=== PATIENT | female | born 1950 | race Caucasian/White ===

== ENCOUNTER 2018-10-19 13:12 | Inpatient (IN) | payer OTHER ==
[2018-10-19] MEDS ORDERED: GABAPENTIN 300 MG CAP PO ONE (14:03)
[2018-10-19] MEDS ORDERED: ACETAMINOPHEN 500 MG TAB PO ONE (14:03)
[2018-10-19] MEDS ORDERED: ceFAZolin 2 GM/DEXTROSE 100 ML IV ONE (14:03)
[2018-10-19] MEDS ORDERED: LIDOCAINE 1% 2 ML INJ ID PRN (14:04)
[2018-10-19] MEDS ORDERED: LR 1,000 ML IV ONE (14:04)
[2018-10-19] MEDS ORDERED: ACETAMINOPHEN 500 MG TAB ONE (14:20)
[2018-10-19 14:35] LABS: PLATELET COUNT 376 10^3/uL (150-400)
--- NOTE | 2018-10-19 15:37 | PDHPUP ---
History & Physical Update H&P update statement: This history and physical update is based on an assessment of the patient which was completed after admission or registration (within 24 hours), but prior to the surgery/procedure. H&P update: H&P reviewed & patient examined, no change in patient's condition since H&P completed
[2018-10-19] MEDS ORDERED: CHLORHEXIDINE GLUC HIBICLENS 118 ML BTL TP ONE (15:48)
[2018-10-19] MEDS ORDERED: THROMBIN (BOVINE) 20,000 UNIT VIAL TP ONE (15:48)
[2018-10-19] MEDS ORDERED: BACITRACIN 50,000 UNITS/10 ML SYR IRR ONE (15:49)
[2018-10-19] MEDS ORDERED: BUPIVACAINE/EPI 0.25% 30 ML SDV ONE ×2 (15:49→22:43)
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
[2018-10-19] MEDS ORDERED: MIDAZOLAM 2 MG/2 ML VIAL IVP ONE (16:56)
[2018-10-19] MEDS ORDERED: REMIFENTANIL HCL 1 MG VIAL ONE ×2 (17:10→20:51)
[2018-10-19] MEDS ORDERED: PROPOFOL/EMULSION 500 MG/50 ML BOTTLE IV ONE ×2 (17:10→20:51)
[2018-10-19] MEDS ORDERED: fentaNYL 100 MCG/2 ML INJ ONE ×3 (17:10→23:29)
[2018-10-19] MEDS ORDERED: LIDOCAINE 2% 100 MG/5 ML SYR ONE (17:10)
[2018-10-19] MEDS ORDERED: PROPOFOL 200 MG/20 ML VIAL ONE (17:10)
[2018-10-19] MEDS ORDERED: ROCURONIUM 50 MG/5 ML VIAL ONE (17:10)
[2018-10-19] MEDS ORDERED: CITRATE DEXTROSE SOLN 500 ML BAG ONE (17:34)
[2018-10-19] MEDS ORDERED: ceFAZolin 1 GM VIAL ONE (21:04)
[2018-10-19] MEDS ORDERED: MIDAZOLAM 2 MG/2 ML VIAL ONE (22:09)
[2018-10-19] MEDS ORDERED: ALBUMIN 5% 250 ML BOTTLE IV ONE (22:41)
[2018-10-19] MEDS ORDERED: BACITRACIN ZINC 14.2 GM OINTTUBE TP ONE (22:59)
[2018-10-19] MEDS ORDERED: oxyCODONE IR 5 MG TAB PO PRN ×2 (23:15→23:19)
[2018-10-19] MEDS ORDERED: diphenhydrAMINE 25 MG CAP PO PRN (23:16)
[2018-10-19] MEDS ORDERED: morphINE PCA 30 MG/30 ML PCA IV PRN (23:16)
[2018-10-19] MEDS ORDERED: LACTULOSE 20 GM/30 ML UDCUP PO PRN (23:16)
[2018-10-19] MEDS ORDERED: MAGNESIUM HYDROXIDE 30 ML UDCUP PO PRN (23:16)
[2018-10-19] MEDS ORDERED: NALOXONE HCL 0.4 MG/ML INJ IVP PRN ×2 (23:16→23:19)
[2018-10-19] MEDS ORDERED: ONDANSETRON DISINTEGRATING 4 MG TAB PO PRN (23:16)
[2018-10-19] MEDS ORDERED: BISACODYL 10 MG SUPP PR PRN (23:16)
[2018-10-19] MEDS ORDERED: PROMETHAZINE HCL 25 MG/ML INJ IVP PRN (23:19)
[2018-10-19] MEDS ORDERED: ONDANSETRON 4 MG/2 ML VIAL IVP PRN (23:19)
[2018-10-19] MEDS ORDERED: HYDROCODONE/APAP 5/325 TAB PO PRN (23:19)
[2018-10-19] MEDS ORDERED: DIAZEPAM 5 MG/ML 1 ML SYR IVP PRN (23:19)
--- NOTE | 2018-10-19 23:24 | POSTANESTH ---
Post Anesthetic Evaluation Cardiovascular Status: Normal, Stable, Similar to Pre-Op Cond Respiratory Status: Normal, Stable, Similar to Pre-op Cond. Level of Consciousness/Mental Status: Can Participate in Eval, Alert and Oriented Pain Control: Adequate, Prn Tx Ordered Nausea/Vomiting Control: Adequate, Prn Tx Ordered Complications Possibly Related to Anesthesia: None Noted
[2018-10-19] MEDS ORDERED: NS 1,000 ML IV SCH (23:30)
[2018-10-19] MEDS: fentaNYL 100 MCG/2 ML INJ IVP PRN ×2 (23:31→23:47)
[2018-10-19] MEDS: HYDROmorphONE/DILAUDID 2 MG/ML INJ IVP PRN (23:55)
[2018-10-19] MEDS ORDERED: HYDROmorphONE/DILAUDID 2 MG/ML INJ ONE (23:56)
[2018-10-20] MEDS: HYDROmorphONE/DILAUDID 2 MG/ML INJ IVP PRN ×4 (00:05→00:43)
[2018-10-20] MEDS: GABAPENTIN 300 MG CAP PO SCH ×6 (01:12→20:36)
--- NOTE | 2018-10-20 01:12 | GOP ---
DATE OF OPERATION: 10/19/2018 SURGEON: Caden Yoon MD NEUROSURGEON: Caden Yoon MD. DRILL PRESS OPERATOR NUMERICAL CONTROL: ENOC Jean. ANESTHESIA: General endotracheal. 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 PROCEDURE PERFORMED: Removal of C3 through C5 anterior cervical plate with exploration of spinal fus ion. C2-3 complete anterior cervical diskectomy and redo C3-4 complete anterior cervical diskectomy and removal of PEEK allograft spacer with partial C3 vertebral corpectomy. Redo C3-4 foraminotomy. Placement of C2-3 and C3-4 structural PEEK interbody spacers. Placement of C2 through C5 anterior ce rvical plate with self-drilling screws. Use of intraoperative microscopy and fluoroscopy. FINDINGS: ESTIMATED BLOOD LOSS: 75 cc. INDICATIONS: The patient is a 68-year-old woman who recently underwent a C3-4 and C4-5 complete ante rior cervical diskectomy and arthrodesis with structural PEEK interbody spacers and anterior cervical plate and screws. The patient had soft bone at the time of surgery and postoperatively was watched very closely clinically and radiographically, and she had significant settling with increasing pain a nd presents now for redo anterior cervical diskectomy and fusion and removal and replacement of plati ng and extension up to C2-3 due to the significant settling and fracture of C3. In order to prevent further problems, the construct is being reinforced with a posterior cervical fusion with instrumenta tion and bone morphogenic protein. This was all discussed with the patient in great detail, includin g the risks versus benefits of such an approach. DESCRIPTION OF PROCEDURE: After informed consent was obtained, [facility] and placed in the supine position with the head in the Halter retractor system. The anterior cervical region was prepped and draped in sterile fashion after fluoroscopic localization of the kevin ect levels, the subcutaneous and intramuscular tissues were infiltrated with local anesthesia. The p rior horizontal skin incision was carefully incised and carried through the platysmal layer using mon opolar electrocautery. This was carried in the avascular plane between the sternocleidomastoid and c arotid sheath laterally and the strap muscles, trachea, and esophagus medially down to the prevertebr al fascia, which was carefully incised with Metzenbaum scissors. Note that there was an extensive am ount of scar tissue that was very meticulously dissected out. The anterior cervical plate was eventu ally carefully identified and removed in a standard fashion. The C2-3 interspace was also carefully exposed and the distraction pins inserted from C2 through C4. With distraction created across the in terspaces, the prior graft at C3-4 was explored, inspected, and noted to be a nonunion so far. This was removed. The C4-5 graft was also explored and inspected and appeared to be relatively solid. Th is was left in place. A complete C2-3 anterior cervical diskectomy was then performed. The posterio r longitudinal ligament was partially removed, and there was an extensive amount of epidural bleeding . I felt that it was in the patient's best interest to leave the remainder intact and prepare the en dplates. It was necessary to remove over 50% of the C3 vertebral body in order to get down to good b one for the fusion. I felt that it was best to leave the remaining bone in place and to put two sepa rate grafts, one at C2-3 and one at C3-4 instead of completely removing C3 and placing a corpectomy g raft across both interspaces and the vertebral body. Following placement of all the grafts along wit h demineralized bone matrix, an appropriately sized anterior cervical plate was then placed and secur ed from C2 to C5. There was not enough bone left at C3 to place screws, but good screw purchase was obtained at C2, C4, and C5 bilaterally. The locking mechanisms were engaged after verification of go od position of the screws using biplanar fluoroscopy. A drain was placed, and after copious irrigati on and meticulous hemostasis, the subcutaneous and intramuscular tissues were re-infiltrated with loc al anesthesia and the wound was closed in a layered fashion using interrupted Vicryl sutures, followe d by Steri-Strips on the skin. COMPLICATIONS: None. DISPOSITION: Patient was then repositioned prone for the posterior portion of the operation. /[id number]/MODL
--- NOTE | 2018-10-20 01:22 | GOP ---
DATE OF OPERATION: 10/19/2018 SURGEON: Caedn Yoon MD NEUROSURGEON: Caden Yoon MD. BRAND ACTIVATION MANAGER: ENOC Jean. ANESTHESIA: General endotracheal. 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 PROCEDURE PERFORMED: C2 through C5 posterior segmental (pedicle screw and lateral mass screw) fixation and posterolateral fusion with local autograft and bone morphogenic protein from C2-C5. Use of intraoperative microscopy, fluoroscopy, and computer volumetric stereotactic navigation with intraoperative neurophysiologic testing. FINDINGS: Extremely difficult exposure and surgery due to patient's anatomy ESTIMATED BLOOD LOSS: 100 cc. INDICATIONS: The patient is a 68-year-old woman who recently underwent a C3-4 and C4-5 complete anterior cervical diskectomy and arthrodesis with structural PEEK interbody spacers and anterior cervical plate and screws. The patient had soft bone at the time of surgery and postoperatively was watched very closely clinically and radiographically, and she had significant settling with increasing pain and presents now for redo anterior cervical diskectomy and fusion and removal and replacement of plating and extension up to C2-3 due to the significant settling and fracture of C3. In order to prevent further problems, the construct is being reinforced with a posterior cervical fusion with instrumentation and bone morphogenic protein. This was all discussed with the patient in great detail, including the risks versus benefits of such an approach. DESCRIPTION OF PROCEDURE: After the anterior portion of the procedure was completed, the patient was repositioned prone on a Stephen table with the head in the radiolucent [place] overhead crane inspector. The posterior cervical region was prepped and draped in a sterile fashion and after fluoroscopic localization, the correct levels of the subcutaneous and intramuscular tissues were infiltrated with local anesthesia. A midline linear incision was then created from approximately C2 to C5. This was carried down the fascial layer, which was incised using the monopolar electrocautery and carried in a subperiosteal plane along the spinous processes and lamina bilaterally. Note that due to the patients extremely short, wide neck, the exposure was extremely difficult and much more bloody than normal. Her anatomy was also very distorted. Intraoperative fluoroscopy was again utilized to verify the correct levels as best we could given the anatomy. Following this, the O-arm neuronavigational system was brought in and 3-D reconstructed images obtained and sent to the Stealth station. Using computer volumetric stereotactic navigation, pedicle screws were placed bilaterally at C2 followed by lateral mass screw fixation at C3, C4, and C5. Again, this was very technically challenging and took approximately 3X as much time as normal and all the screws could not even be placed. The rods were contoured and placed and secured after verification of good position of the screws using biplanar fluoroscopy (as best we could). After placing and securing the rods, the remaining laminae, facet joints, and lateral masses were extensively decorticated along with the joints from C2 to C5 , and after drilling these out and packing local autograft along with bone morphogenic protein in them, a drain was placed and the wound was closed in a layered fashion using interrupted Vicryl sutures, followed by Steri-Strips on the skin. COMPLICATIONS: None. DISPOSITION: The patient is currently in the process of being repositioned for extubation. /[id number]/MODL MTDD
[2018-10-20] MEDS ORDERED: ceFAZolin 2 GM/DEXTROSE 100 ML IV SCH (02:00)
[2018-10-20] MEDS ORDERED: SODIUM CL NASAL 45 ML BTL EACHNARE PRN (04:46)
[2018-10-20 05:43] LABS: PLATELET COUNT 280 10^3/uL (150-400)
[2018-10-20] MEDS: ceFAZolin 2 GM/DEXTROSE 100 ML IV SCH ×2 (05:55→13:15)
--- NOTE | 2018-10-20 07:44 | NEUSURGPN ---
Assessment/Plan: 68F s/p plate removal, C3 corepectomy, C2-5 plating and C2-5 PSF POD1 -Optimize pain management -PT/OT/SENIOR ACCOUNT REPRESENTATIVE, patient okay OOb to chair with soft collar. Nurse to call Buckle Coverer to refit collar as is too tight. Once hard collar arrives okay to get patient walking -Optimize pain management -Advance diet as tolerated -Continue JOSIE drain -Please notify NS with any change in neuro/motor exam Subjective: Posterior neck pain, feels like she has a "lump" in her throat Objective: NAD A&Ox3 MAEx4 5/5 and equal in BUE and BLE. JOSIE drain serosanguineous. Incisions c/d/i Catheter Insertion Date: 10/19/18 - Physician Discussed Patient with : Car Neurosurgery Physical Exam - Vitals, I&O, Labs I and O 10/19/18 10/20/18 10/21/18 05:59 05:59 05:59 Intake Total 3739 Output Total 1560 Balance 2179 Weight 105.687 kg Intake: Oral (ml) 400 IV Intake (ml) 3239 IV Infused (ml) 100 ceFAZolin 2 GM/DEXTROSE 100 100 ml @ 200 mls/hr IV ONCALL ONE Rx#:[id number] Output: Urine (ml) 900 Catheter 900 Estimated Blood Loss (ml) 500 JOSIE Drain Output (ml) 160 #1 Left Anterior Neck 50 Stephen Humphrey #2 Left Posterior Neck 110 Stephen Humphrey Other: Intake Quantity Yes Sufficient Vital Signs Temp Pulse Resp BP Pulse Ox 36.9 C 74 21 H 118/69 86 L 10/20/18 07:36 10/20/18 07:36 10/20/18 07:36 10/20/18 07:36 10/20/18 07:36 Laboratory Results 10/20/18 04:30 10/20/18 04:30 ICD10 Worksheet Patient Problems: Problems Problem Status Onset Fusion of spine of cervical region Acute
[2018-10-20] MEDS ORDERED: PNEUMOC 13-VAL CONJ-DIP CRM/PF 0.5 ML SYR (PREVNAR 13) IM ONE (07:50)
[2018-10-20] MEDS: POLYETHYLENE GLYCOL 3350 17 GM PKT PO SCH ×3 (08:09→21:48)
[2018-10-20] MEDS: FAMOTIDINE 20 MG TAB PO SCH ×2 (08:11→20:36)
[2018-10-20] MEDS: DULoxetine 60 MG CAP PO SCH (08:11)
[2018-10-20] MEDS: ATENOLOL 25 MG TAB PO SCH (08:11)
[2018-10-20] MEDS: SENNOSIDES/DOCUSATE SODIUM TAB PO SCH ×2 (08:12→20:35)
--- NOTE | 2018-10-20 09:23 | PDMN ---
Medical Necessity Medical [place] [facility] 2 days: OP: C2-C5 posterior segmental fixation and posterolateral fusion... [id number] APPROVED FOR INPT SURGERY 10/19
--- NOTE | 2018-10-20 10:01 | ASMTCMCOM ---
CM Note CM Note Notes: Pt is a 68 yo F had previously had spinal surgery on 07/02/18 and presented to her outpatient provider with pain and complications on 10/15/18. Pt underwent spinal surgery to replace infected hardware and is currently in ICU. Pt last discharged on 07/04/18 Independent with no services. Pt has daughter in the area who was involved in care previously. CM to follow Plan: TBD Date Signed: 10/20/2018 10:00 AM Electronically Signed By:SARAVANAN Lopez
[2018-10-20] MEDS: HYDROmorphONE/DILAUDID 1 MG/ML INJ IVP PRN ×2 (11:41→14:14)
--- NOTE | 2018-10-20 12:51 | PDGENHP ---
History and Physical - Chief Complaint Neck pain - History of Present Illness 68-year-old female who is admitted to the ICU after C3-4, C4-5 anterior cervical diskectomy as well as C2 through C5 fusion and C3 fracture with hardware failure and progressive pain. She progresses neck pain radiating to her arm not relieved with conservative measures. She has a history of rheumatoid arthritis on Dilshad septum followed at [facility]. 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 She denies new fevers chills nausea vomiting shortness of breath however cold intolerance, weight loss, syncope History Information - Allergies/Home Medication List Allergies/Adverse Reactions: Penicillins Allergy (Verified 10/16/18 15:10) Hives Sulfa (Sulfonamide Antibiotics) Allergy (Verified 10/16/18 15:10) Rash Home Medications: Atenolol [Tenormin 25 mg (*)] 25 mg PO DAILY 06/17/18 [Last Taken 10/19/18] Cyanocobalamin [Vitamin B12 1000MCG/ML (*)] 1,000 mcg IM Q30D 06/17/18 [Last Taken 10/05/18] DULoxetine [Cymbalta 60 MG (*)] 120 mg PO DAILY 06/17/18 [Last Taken 10/19/18] Ergocalciferol [Vitamin D2 (*)] 50,000 unit PO MO 06/17/18 [Last Taken 10/12/18] Gabapentin [Neurontin 300 MG (*)] 300 mg PO 5XD 06/17/18 [Last Taken 10/18/18] I have personally reviewed and updated: family history, medical history, social history, surgical history - Past Medical History Additional medical history: RA, obesity, prior spinal surgery, fibromyalgia, possible lupus - Surgical History Additional surgical history: Prior spine surgery - Family History Additional family history: No history of recurrent C-spine surgery - Social History Smoking Status: Never smoked Alcohol Use: None Review of Systems Review of Systems: ROS: 10pt was reviewed & negative except for what was stated in HPI & below Physical Exam Physical Exam: Temp Pulse Resp BP Pulse Ox 36.6 C 59 L 11 L 124/63 H 100 10/20/18 12:00 10/20/18 12:00 10/20/18 12:00 10/20/18 12:00 10/20/18 12:00 O2 (L/minute) 4 Constitutional: no apparent distress, appears nourished Eyes: PERRL Ears, Nose, Mouth, Throat: moist mucous membranes, ears appear normal, other ( Neck and collar) Cardiovascular: regular rate and rhythym, no murmur, rub, or gallop Respiratory: no respiratory distress, no rales or rhonchi Skin: warm, normal color Neurologic: AAOx3, sensation intact bilaterally, CN II-XII Intact Psychiatric: interacting appropriately, not anxious, not encephalopathic, thought process linear Lab Data & Imaging Review 10/20/18 04:30 10/20/18 04:30 WBC 10.21 10^3/uL (3.80-9.50) H 10/20/18 04:30 RBC 3.62 10^6/uL (4.18-5.33) L 10/20/18 04:30 Hgb 10.6 g/dL (12.6-16.3) L 10/20/18 04:30 Hct 33.3 % (38.0-47.0) L 10/20/18 04:30 MCV 92.0 fL (81.5-99.8) 10/20/18 04:30 MCH 29.3 pg (27.9-34.1) 10/20/18 04:30 MCHC 31.8 g/dL (32.4-36.7) L 10/20/18 04:30 RDW 13.2 % (11.5-15.2) 10/20/18 04:30 Plt Count 280 10^3/uL (150-400) 10/20/18 04:30 MPV 9.7 fL (8.7-11.7) 10/20/18 04:30 Neut % (Auto) 91.7 % (39.3-74.2) H 10/20/18 04:30 Lymph % (Auto) 4.5 % (15.0-45.0) L 10/20/18 04:30 [place] % (Auto) 3.2 % (4.5-13.0) L 10/20/18 04:30 Eos % (Auto) 0.0 % (0.6-7.6) L 10/20/18 04:30 Baso % (Auto) 0.2 % (0.3-1.7) L 10/20/18 04:30 Nucleat RBC Rel Count 0.0 % (0.0-0.2) 10/20/18 04:30 Absolute Neuts (auto) 9.36 10^3/uL (1.70-6.50) H 10/20/18 04:30 Absolute Lymphs (auto) 0.46 10^3/uL (1.00-3.00) L 10/20/18 04:30 Absolute Monos (auto) 0.33 10^3/uL (0.30-0.80) 10/20/18 04:30 Absolute Eos (auto) 0.00 10^3/uL (0.03-0.40) L 10/20/18 04:30 Absolute Basos (auto) 0.02 10^3/uL (0.02-0.10) 10/20/18 04:30 Absolute Nucleated RBC 0.00 10^3/uL (0-0.01) 10/20/18 04:30 Immature Gran % 0.4 % (0.0-1.1) 10/20/18 04:30 Immature Gran # 0.04 10^3/uL (0.00-0.10) 10/20/18 04:30 RBC/WBC/PLT Morphology TNP 10/20/18 04:30 Platelet Estimate TNP 10/20/18 04:30 Sodium 137 mEq/L (135-145) 10/20/18 04:30 Potassium 4.8 mEq/L (3.3-5.0) 10/20/18 04:30 Chloride 107 mEq/L (97-110) 10/20/18 04:30 Carbon Dioxide 24 mEq/l (22-31) 10/20/18 04:30 Anion Gap 6 mEq/L (6-14) 10/20/18 04:30 BUN 11 mg/dL (7-23) 10/20/18 04:30 Creatinine 0.6 mg/dL (0.6-1.0) 10/20/18 04:30 Estimated GFR > 60 10/20/18 04:30 Glucose 118 mg/dL (70-100) H 10/20/18 04:30 Calcium 8.8 mg/dL (8.5-10.4) 10/20/18 04:30 Patient ABO/Rh AB POSITIVE 10/19/18 14:03 Antibody Screen NEGATIVE 10/19/18 14:03 Assessment & Plan Assessment: 68-year-old female with rheumatoid arthritis and C3 fracture as well as hardware malfunction status post anterior discectomy and C2 through C5 spinal fusion. # C3 fracture # status post C-spine fusion # chronic pain # rheumatoid arthritis # obesity Plan: # aggressive pulmonary toilet # pain control # avoid immunosuppression for RA in the immediate postoperative phase # early ambulation as able per Neurosurgery # continue fibromyalgia medications # continue antihypertensives
[2018-10-20] MEDS: HYDROmorphONE/DILAUDID 2 MG TAB PO PRN ×3 (13:21→20:36)
[2018-10-20] MEDS: METHOCARBAMOL 750 MG TAB PO PRN ×2 (14:13→20:35)
[2018-10-20] MEDS: ACETAMINOPHEN 325 MG TAB PO PRN (23:41)
[2018-10-21] MEDS: HYDROmorphONE/DILAUDID 2 MG TAB PO PRN ×4 (00:32→19:49)
[2018-10-21] MEDS: GABAPENTIN 300 MG CAP PO SCH ×5 (06:14→22:32)
[2018-10-21] MEDS: METHOCARBAMOL 750 MG TAB PO PRN ×2 (07:52→14:08)
[2018-10-21] MEDS: ACETAMINOPHEN 325 MG TAB PO PRN ×2 (07:52→19:44)
--- NOTE | 2018-10-21 08:13 | SOAPPROG ---
SOAP Progress Note Assessment/Plan: Assessment: 68 yo F POD #2 plate removal, C2/3, C3/4 ACDF with C2-5 plating, C2- 5 posterior fusion Plan: neuro: stable x-rays pending hard collar at all times JOSIE x 2 please call with neuro changes discussed with Dr Monique 10/21/18 08:11 Subjective: + neck pain, continued pain right shoulder and arm. No weakness. Objective: Vital Signs Temp Pulse Resp BP Pulse Ox 36.7 C 75 14 108/55 L 99 10/21/18 07:43 10/21/18 07:43 10/21/18 07:43 10/21/18 07:43 10/21/18 07:43 Laboratory Results 10/20/18 04:30 10/20/18 04:30 10/20/18 10/21/18 10/22/18 05:59 05:59 05:59 Intake Total 3739 2210 Output Total 1560 3593 Balance 2179 -1383 AAOx4, +FC PERRL, EOMI, no facial droop 5/5 + light touch C/D/I x 2 ICD10 Worksheet Patient Problems: Problems Problem Status Onset Fusion of spine of cervical region Acute
[2018-10-21] MEDS: FAMOTIDINE 20 MG TAB PO SCH ×2 (09:22→20:04)
[2018-10-21] MEDS: SENNOSIDES/DOCUSATE SODIUM TAB PO SCH ×2 (09:23→20:04)
[2018-10-21] MEDS: ATENOLOL 25 MG TAB PO SCH (09:23)
[2018-10-21] MEDS: DULoxetine 60 MG CAP PO SCH (09:23)
[2018-10-21] MEDS: POLYETHYLENE GLYCOL 3350 17 GM PKT PO SCH ×3 (09:23→22:32)
[2018-10-21] MEDS: CEPACOL LOZENGE PO PRN ×2 (11:27→16:23)
--- NOTE | 2018-10-21 13:19 | PDINTPN ---
Data Sme Progress Note Assessment/Plan: 68-year-old female with RA and C3 fracture as well as hardware malfunction POD # 2 plate removal, C2/3, C3/4 ACDF with C2-5 plating, C2-5 posterior fusiona # C3 fracture # status post C-spine fusion # chronic pain # rheumatoid arthritis # obesity Plan: # avoid immunosuppression for RA in the immediate postoperative phase # aggressive pulmonary toilet # pain control # early ambulation as able per neurosurgery # continue fibromyalgia medications # continue antihypertensives # dispo per NS Subjective: Working with PT, no hypotension, still with neck pain and throat pain but improving. Drain output decreased. No fevers, chills, nausea, vomiting, SOB, leg swelling, chest pain Objective: Vital Signs Temp Pulse Resp BP Pulse Ox 36.7 C 64 18 112/71 92 10/21/18 12:00 10/21/18 12:00 10/21/18 12:00 10/21/18 12:00 10/21/18 12:00 Laboratory Results 10/20/18 04:30 10/20/18 04:30 10/20/18 10/21/18 10/22/18 05:59 05:59 05:59 Intake Total 3739 2210 150 Output Total 1560 3593 Balance 2179 -1383 150 ICD10 Worksheet Patient Problems: Problems Problem Status Onset Fusion of spine of cervical region Acute
[2018-10-22] MEDS: HYDROmorphONE/DILAUDID 2 MG TAB PO PRN ×4 (01:30→21:11)
[2018-10-22] MEDS: GABAPENTIN 300 MG CAP PO SCH ×5 (05:37→20:59)
[2018-10-22] MEDS ORDERED: DIAZEPAM 5 MG TAB PO PRN (07:22)
--- NOTE | 2018-10-22 07:25 | NEUSURGPN ---
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 Incisions c/d/i Catheter Insertion Date: 10/19/18 - Physician Discussed Patient with : Car Neurosurgery Physical Exam - Vitals, I&O, Labs I and O 10/21/18 10/22/18 10/23/18 05:59 05:59 05:59 Intake Total 2210 1100 Output Total 3593 Balance -1383 1100 Intake: Oral (ml) 350 1100 IV Infused (ml) 1860 Ns 1,000 ml @ 100 mls/hr 1660 IV CONT GABRIELA Rx#: [id number] ceFAZolin 2 GM/DEXTROSE 200 100 ml @ 200 mls/hr IV ONCALL ONE Rx#:[id number] Output: Urine (ml) 3400 Catheter 3400 JOSIE Drain Output (ml) 193 #1 Left Anterior Neck 46 Stephen Humphrey #2 Left Posterior Neck 147 Stephen Humphrey Other: Number of Voids Toilet 1 Vital Signs Temp Pulse Resp BP Pulse Ox 36.8 C 72 16 120/53 L 100 10/21/18 23:56 10/21/18 23:56 10/21/18 23:56 10/21/18 23:56 10/21/18 23:56 Laboratory Results 10/20/18 04:30 10/20/18 04:30 ICD10 Worksheet Patient Problems: Problems Problem Status Onset Fusion of spine of cervical region Acute
[2018-10-22] MEDS: SENNOSIDES/DOCUSATE SODIUM TAB PO SCH ×2 (08:29→21:00)
[2018-10-22] MEDS: POLYETHYLENE GLYCOL 3350 17 GM PKT PO SCH ×3 (08:29→21:00)
[2018-10-22] MEDS: ENOXAPARIN 40 MG/0.4 ML SYR SC SCH (08:29)
[2018-10-22] MEDS: ATENOLOL 25 MG TAB PO SCH (08:30)
[2018-10-22] MEDS: DULoxetine 60 MG CAP PO SCH (08:30)
[2018-10-22] MEDS: FAMOTIDINE 20 MG TAB PO SCH ×2 (08:30→21:00)
[2018-10-22] MEDS: ACETAMINOPHEN 325 MG TAB PO PRN ×2 (08:41→14:57)
--- NOTE | 2018-10-22 14:14 | ASMTCMCOM ---
CM Note CM Note Notes: PT rec HHC, pt amenable and was pre-arranged with [facility]. Indu with [facility] met with pt today. CM to follow. D/c plan of care: Home with family support and [facility] Date Signed: 10/22/2018 02:13 PM Electronically Signed By:JENY Grace
[2018-10-22] MEDS: METHOCARBAMOL 750 MG TAB PO PRN (14:59)
[2018-10-22] MEDS ORDERED: DEXAMETHASONE 4 MG/ML VIAL IVP ONE (22:00)
[2018-10-23] MEDS ORDERED: ALBUTEROL 3 ML DEYVIAL IH PRN (07:52)
[2018-10-23] MEDS: HYDROmorphONE/DILAUDID 1 MG/ML INJ IVP PRN ×5 (08:21→22:54)
[2018-10-23] MEDS: ATENOLOL 25 MG TAB PO SCH ×2 (08:25→14:02)
[2018-10-23] MEDS: GABAPENTIN 300 MG CAP PO SCH ×6 (08:25→22:43)
[2018-10-23] MEDS: FAMOTIDINE 20 MG TAB PO SCH ×3 (08:27→22:43)
[2018-10-23] MEDS: SENNOSIDES/DOCUSATE SODIUM TAB PO SCH ×4 (08:27→22:44)
[2018-10-23] MEDS: DULoxetine 60 MG CAP PO SCH (08:27)
[2018-10-23] MEDS: ENOXAPARIN 40 MG/0.4 ML SYR SC SCH (08:27)
[2018-10-23] MEDS: POLYETHYLENE GLYCOL 3350 17 GM PKT PO SCH ×3 (08:27→22:43)
--- NOTE | 2018-10-23 08:44 | SOAPPROG ---
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 Pt is currently NPO due to dysphagia Pain controlled. Objective: NAD A&Ox3 MAEx4 03/21 and equal in BUE and BLE. Incisions c/d/i Objective: Vital Signs Temp Pulse Resp BP Pulse Ox 36.6 C 63 17 104/60 89 L 10/23/18 08:00 10/23/18 08:25 10/23/18 08:00 10/23/18 08:25 10/23/18 08:00 Laboratory Results 10/20/18 04:30 10/20/18 04:30 10/22/18 10/23/18 10/24/18 05:59 05:59 05:59 Intake Total 1100 1000 Balance 1100 1000 Post op xrays 10/20/18 show good alignment ICD10 Worksheet Patient Problems: Problems Problem Status Onset Fusion of spine of cervical region Acute
[2018-10-23] MEDS: HYDROmorphONE/DILAUDID 2 MG TAB PO PRN (14:06)
[2018-10-23] MEDS: METHOCARBAMOL 750 MG TAB PO PRN (14:06)
[2018-10-23] MEDS: ACETAMINOPHEN 325 MG TAB PO PRN (14:15)
[2018-10-23] MEDS: ONDANSETRON 4 MG/2 ML VIAL IVP PRN (16:27)
[2018-10-24] MEDS: GABAPENTIN 300 MG CAP PO SCH ×4 (06:45→19:07)
[2018-10-24] MEDS: DULoxetine 60 MG CAP PO SCH (10:19)
[2018-10-24] MEDS: ATENOLOL 25 MG TAB PO SCH (10:19)
[2018-10-24] MEDS: FAMOTIDINE 20 MG TAB PO SCH ×2 (10:19→22:49)
[2018-10-24] MEDS: POLYETHYLENE GLYCOL 3350 17 GM PKT PO SCH ×3 (10:20→22:48)
[2018-10-24] MEDS: SENNOSIDES/DOCUSATE SODIUM TAB PO SCH ×2 (10:20→22:49)
--- NOTE | 2018-10-24 10:36 | SOAPPROG ---
SOAP Progress Note Assessment/Plan: A/P: 68F s/p plate removal, C3 corepectomy, C2-5 plating and C2-5 PSF POD#5 -ST eval this AM. pt failed swallow. 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 Monique and order dobhoff tube for nutrition -Optimize pain management -PT/OT/CRM TECHNICAL LEAD, continue hard cervical collar. OK to shower in Emily collar -Please notify NS with any change in neuro/motor exam -DVT prophx: TEds, SCDs, Lovenox -encourage OOB -D/W Dr. Monique Subjective: Has ongoing difficulty managing secretions Pt is currently NPO due to dysphagia Pain controlled. Objective: NAD A&Ox3 MAEx4 03/21 and equal in BUE and BLE. Incisions c/d/i 10/24/18 10:36 Objective: Vital Signs Temp Pulse Resp BP Pulse Ox 36.4 C 62 16 137/56 H 88 L 10/24/18 08:00 10/24/18 08:00 10/24/18 08:00 10/24/18 08:00 10/24/18 08:00 Laboratory Results 10/20/18 04:30 10/20/18 04:30 10/23/18 10/24/18 10/25/18 05:59 05:59 05:59 Intake Total 1000 0 Balance 1000 0 ICD10 Worksheet Patient Problems: Problems Problem Status Onset Fusion of spine of cervical region Acute
[2018-10-24] MEDS ORDERED: DEXAMETHASONE 4 MG/ML VIAL IVP ONE (10:45)
[2018-10-24] MEDS: HYDROmorphONE/DILAUDID 1 MG/ML INJ IVP PRN ×2 (11:42→16:51)
[2018-10-24] MEDS: ENOXAPARIN 40 MG/0.4 ML SYR SC SCH (12:52)
[2018-10-24] MEDS ORDERED: LORazepam 2 MG/ML INJ IVP ONE (13:00)
[2018-10-24] MEDS ORDERED: LIDOCAINE 2% JELLY 5 ML TUBE ONE (13:52)
[2018-10-24] MEDS ORDERED: IOPAMIDOL (ISOVUE-300) 150 ML BTL ONE (14:10)
[2018-10-24] MEDS: ONDANSETRON 4 MG/2 ML VIAL IVP PRN (14:38)
[2018-10-24] MEDS ORDERED: SENNOSIDES 17.6 MG/10 ML UDL - IF LIQUID ORDERED PO SCH (21:00)
[2018-10-24] MEDS: ACETAMINOPHEN 325 MG TAB PO PRN (21:12)
[2018-10-24] MEDS: METHOCARBAMOL 750 MG TAB PO PRN (21:13)
[2018-10-24] MEDS: GABAPENTIN 250 MG/5 ML 30 ML BOTTLE TUBE SCH (21:24)
[2018-10-24] MEDS: HYDROmorphONE/DILAUDID 2 MG TAB PO PRN (22:36)
[2018-10-24] MEDS: FAMOTIDINE 20 MG TAB TUBE SCH (22:47)
[2018-10-24] MEDS: SENNOSIDES 17.6 MG/10 ML UDL - IF LIQUID ORDERED TUBE SCH (22:48)
[2018-10-25] MEDS: HYDROmorphONE/DILAUDID 2 MG TAB PO PRN ×5 (04:47→22:48)
[2018-10-25] MEDS: GABAPENTIN 250 MG/5 ML 30 ML BOTTLE TUBE SCH ×5 (05:03→21:12)
[2018-10-25] MEDS: DULoxetine 60 MG CAP PO SCH (08:49)
[2018-10-25] MEDS: ATENOLOL 25 MG TAB PO SCH (08:49)
[2018-10-25] MEDS: FAMOTIDINE 20 MG TAB TUBE SCH ×2 (08:49→21:11)
[2018-10-25] MEDS: ENOXAPARIN 40 MG/0.4 ML SYR SC SCH (09:00)
[2018-10-25] MEDS: SENNOSIDES 17.6 MG/10 ML UDL - IF LIQUID ORDERED TUBE SCH ×2 (09:12→21:12)
[2018-10-25] MEDS: POLYETHYLENE GLYCOL 3350 17 GM PKT PO SCH ×3 (09:17→21:12)
--- NOTE | 2018-10-25 10:34 | SOAPPROG ---
SOAP Progress Note Assessment/Plan: A/P: 68F s/p plate removal, C3 corepectomy, C2-5 plating and C2-5 PSF POD#6 -Dobhoff in place. 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 OK to shower in Emily collar -Please notify NS with any change in neuro/motor exam -DVT prophx: TEds, SCDs, Lovenox -encourage OOB Subjective: in bed, comfortable. Dobhoff placed yesterday in IR. Doing better overall today. Right arm pain resolved. Objective: NAD A&Ox3 MAEx4 5/5 and equal in BUE and BLE. Incisions x 2 : c/d/i 10/24/18 10:36 10/25/18 10:33 Objective: Vital Signs Temp Pulse Resp BP Pulse Ox 36.6 C 62 14 132/67 H 96 10/25/18 07:23 10/25/18 07:23 10/25/18 07:23 10/25/18 07:23 10/25/18 07:23 Laboratory Results 10/20/18 04:30 10/20/18 04:30 10/24/18 10/25/18 10/26/18 05:59 05:59 05:59 Intake Total 0 925 Output Total 300 Balance 0 625 ICD10 Worksheet Patient Problems: Problems Problem Status Onset Fusion of spine of cervical region Acute
--- NOTE | 2018-10-25 12:10 | ASMTCMCOM ---
CM Note CM Note Notes: The discharge plan remains that patient will be followed by [facility] -PT. Date Signed: 10/25/2018 12:09 PM Electronically Signed By:Sonal Carty LCSW
[2018-10-25] MEDS ORDERED: guaiFENesin 200 MG/10 ML UDL TUBE PRN (12:31)
[2018-10-25] MEDS: ACETAMINOPHEN 650 MG/20.3 ML UDCUP PO PRN (22:48)
[2018-10-26] MEDS: HYDROmorphONE/DILAUDID 2 MG TAB PO PRN (04:32)
[2018-10-26] MEDS: ACETAMINOPHEN 650 MG/20.3 ML UDCUP PO PRN (04:33)
[2018-10-26] MEDS: GABAPENTIN 250 MG/5 ML 30 ML BOTTLE TUBE SCH ×5 (05:56→21:09)
[2018-10-26] MEDS: METHOCARBAMOL 750 MG TAB PO PRN (06:07)
[2018-10-26] MEDS ORDERED: DIAZEPAM 5 MG TAB TUBE PRN (08:25)
[2018-10-26] MEDS ORDERED: diphenhydrAMINE 12.5 MG/5 ML UDCUP PO PRN (08:26)
[2018-10-26] MEDS ORDERED: ACETAMINOPHEN 650 MG/20.3 ML UDCUP TUBE PRN (08:30)
[2018-10-26] MEDS ORDERED: MAGNESIUM HYDROXIDE 30 ML UDCUP TUBE PRN (08:30)
[2018-10-26] MEDS ORDERED: diphenhydrAMINE 12.5 MG/5 ML UDCUP TUBE PRN (08:30)
--- NOTE | 2018-10-26 08:48 | NEUSURGPN ---
Assessment/Plan: : 68F s/p plate removal, C3 corepectomy, C2-5 plating and C2-5 PSF POD#7 -Dobhoff in place. Continue tube feeds -Optimize pain management - pain well controlled currently -PT/OT/HELP DESK SUPPORT SPECIALIST, continue hard cervical collar. OK to shower in Emily collar -Please notify NS with any change in neuro/motor exam -DVT prophx: TEds, SCDs, Lovenox -encourage OOB -manager lan to work on dispo options. Subjective: Posterior neck pain, Denies any new arm pain. Objective: NAD A&Ox3 MAEx4 5/5 and equal in BUE and BLE. Incisions c/d/i Catheter Insertion Date: 10/19/18 - Physician Discussed Patient with : Car Neurosurgery Physical Exam - Vitals, I&O, Labs I and O 10/25/18 10/26/18 10/27/18 05:59 05:59 05:59 Intake Total 925 1400 3218 Output Total 300 Balance 625 1400 3218 Intake: Tube Feeding (ml) 801 527 6903 Tube Flush (ml) 521 611 0072 Output: Urine (ml) 300 Toilet 300 Other: Number of Voids Toilet 1 1 1 Vital Signs Temp Pulse Resp BP Pulse Ox 36.7 C 63 16 126/66 H 90 L 10/26/18 07:50 10/26/18 07:50 10/26/18 07:50 10/26/18 07:50 10/26/18 07:50 Laboratory Results 10/20/18 04:30 10/20/18 04:30 ICD10 Worksheet Patient Problems: Problems Problem Status Onset Fusion of spine of cervical region Acute
[2018-10-26] MEDS ORDERED: LACTULOSE 20 GM/30 ML UDCUP TUBE PRN (09:00)
[2018-10-26] MEDS ORDERED: METHOCARBAMOL 750 MG TAB TUBE PRN (09:00)
[2018-10-26] MEDS: ATENOLOL 25 MG TAB TUBE SCH (10:50)
[2018-10-26] MEDS: DULoxetine 60 MG CAP TUBE SCH (10:50)
[2018-10-26] MEDS: ENOXAPARIN 40 MG/0.4 ML SYR SC SCH (10:50)
[2018-10-26] MEDS: HYDROmorphONE/DILAUDID 2 MG TAB TUBE PRN ×2 (10:51→17:25)
[2018-10-26] MEDS: POLYETHYLENE GLYCOL 3350 17 GM PKT TUBE SCH ×3 (10:51→21:09)
[2018-10-26] MEDS: FAMOTIDINE 20 MG TAB TUBE SCH ×2 (10:51→21:08)
[2018-10-26] MEDS: SENNOSIDES 17.6 MG/10 ML UDL - IF LIQUID ORDERED TUBE SCH ×2 (10:51→21:09)
[2018-10-26] MEDS: NS 1,000 ML IV SCH (18:46)
[2018-10-26] MEDS: HYDROmorphONE/DILAUDID 1 MG/ML INJ IVP PRN ×2 (21:07→23:34)
[2018-10-27] MEDS ORDERED: ACETAMINOPHEN 650 MG SUPP PR PRN (01:15)
[2018-10-27] MEDS: NS 1,000 ML IV SCH ×2 (01:52→17:34)
[2018-10-27] MEDS: DIAZEPAM 5 MG/ML 1 ML SYR IVP PRN ×3 (01:53→20:49)
[2018-10-27] MEDS: GABAPENTIN 250 MG/5 ML 30 ML BOTTLE TUBE SCH ×4 (04:41→20:23)
[2018-10-27] MEDS: HYDROmorphONE/DILAUDID 1 MG/ML INJ IVP PRN ×5 (05:02→20:21)
--- NOTE | 2018-10-27 07:16 | SOAPPROG ---
SOAP Progress Note Assessment/Plan: A/P: 68F s/p plate removal, C3 corepectomy, C2-5 plating and C2-5 PSF POD#8 -Dobhoff pulled out, awaiting replacement today. 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 OK to shower in Emily collar -Please notify NS with any change in neuro/motor exam -DVT prophx: TEds, SCDs, Lovenox -encourage OOB Subjective: in bed, comfortable. No new issues but dobhoff did get pulled out yesterday Objective: NAD A&Ox3 MAEx4 / and equal in BUE and BLE. Incisions x 2 : c/d/i Objective: Vital Signs Temp Pulse Resp BP Pulse Ox 36.7 C 65 18 138/74 H 99 10/26/18 23:23 10/26/18 23:23 10/26/18 23:23 10/26/18 23:23 10/26/18 23:23 Laboratory Results 10/20/18 04:30 10/20/18 04:30 10/26/18 10/27/18 10/28/18 05:59 05:59 05:59 Intake Total 1400 4718 Balance 1400 4718 ICD10 Worksheet Patient Problems: Problems Problem Status Onset Fusion of spine of cervical region Acute
[2018-10-27] MEDS ORDERED: LIDOCAINE 2% JELLY 20 ML (UROJECT) ONE (08:54)
[2018-10-27] MEDS ORDERED: BENZOCAINE UNIT DOSE SPRAY HURRICAINE MM ONE (08:56)
[2018-10-27] MEDS ORDERED: IOPAMIDOL (ISOVUE-M 300) 15 ML VIAL ONE (09:35)
[2018-10-27] MEDS: SENNOSIDES 17.6 MG/10 ML UDL - IF LIQUID ORDERED TUBE SCH ×2 (11:42→20:24)
[2018-10-27] MEDS: DULoxetine 60 MG CAP TUBE SCH (11:42)
[2018-10-27] MEDS: FAMOTIDINE 20 MG TAB TUBE SCH ×2 (11:42→20:24)
[2018-10-27] MEDS: ATENOLOL 25 MG TAB TUBE SCH (11:42)
[2018-10-27] MEDS: POLYETHYLENE GLYCOL 3350 17 GM PKT TUBE SCH ×3 (11:42→20:24)
[2018-10-27] MEDS: ENOXAPARIN 40 MG/0.4 ML SYR SC SCH (11:42)
[2018-10-28] MEDS: HYDROmorphONE/DILAUDID 1 MG/ML INJ IVP PRN ×3 (00:19→08:12)
[2018-10-28] MEDS: NS 1,000 ML IV SCH ×2 (02:56→11:26)
[2018-10-28] MEDS: GABAPENTIN 250 MG/5 ML 30 ML BOTTLE TUBE SCH ×4 (04:49→18:20)
[2018-10-28] MEDS: DIAZEPAM 5 MG/ML 1 ML SYR IVP PRN (05:04)
--- NOTE | 2018-10-28 07:53 | SOAPPROG ---
SOAP Progress Note Assessment/Plan: Assessment: 68 yo F POD #9 plate removal, C2/3, C3/4 ACDF with C2-5 plating, C2- 5 posterior fusion Plan: neuro: stable continued dysphagia, dobhoff coughed out twice yesterday, discussed having speech re-evaluate patient on considering PEG placement hard collar at all times JPs removed PT/OT/ST scd/dino/lovenox for dvt prophylaxis please call with neuro changes discussed with Dr Monique 10/21/18 08:11 10/28/18 07:50 Subjective: neck pain improving, continued dysphagia, no arm pain, no weakness. Objective: Vital Signs Temp Pulse Resp BP Pulse Ox 36.5 C 65 17 160/90 H 89 L 10/28/18 07:40 10/28/18 07:40 10/28/18 07:40 10/28/18 07:40 10/28/18 07:40 Laboratory Results 10/20/18 04:30 10/20/18 04:30 10/27/18 10/28/18 10/29/18 05:59 05:59 05:59 Intake Total 4718 1500 Output Total 600 Balance 4718 900 AAOX4, +FC PERRL, EOMI, no facial droop 5/5 + light touch C/D/I x 2 ICD10 Worksheet Patient Problems: Problems Problem Status Onset Fusion of spine of cervical region Acute
[2018-10-28] MEDS: ATENOLOL 25 MG TAB TUBE SCH (08:17)
[2018-10-28] MEDS: ENOXAPARIN 40 MG/0.4 ML SYR SC SCH (08:17)
[2018-10-28] MEDS: DULoxetine 60 MG CAP TUBE SCH (08:17)
[2018-10-28] MEDS: SENNOSIDES 17.6 MG/10 ML UDL - IF LIQUID ORDERED TUBE SCH (08:18)
[2018-10-28] MEDS: POLYETHYLENE GLYCOL 3350 17 GM PKT TUBE SCH (08:18)
[2018-10-28] MEDS: FAMOTIDINE 20 MG TAB TUBE SCH (08:18)
[2018-10-28] MEDS: HYDROmorphONE/DILAUDID 2 MG TAB TUBE PRN (13:23)
[2018-10-28] MEDS ORDERED: ACETAMINOPHEN 325 MG TAB PO PRN (13:47)
[2018-10-28] MEDS ORDERED: diphenhydrAMINE 25 MG CAP PO PRN (13:53)
[2018-10-28] MEDS ORDERED: METHOCARBAMOL 750 MG TAB PO PRN (14:30)
[2018-10-28] MEDS ORDERED: MAGNESIUM HYDROXIDE 30 ML UDCUP PO PRN (14:30)
[2018-10-28] MEDS ORDERED: LACTULOSE 20 GM/30 ML UDCUP PO PRN (14:30)
[2018-10-28] MEDS ORDERED: guaiFENesin 200 MG/10 ML UDL PO PRN (14:30)
--- NOTE | 2018-10-28 14:41 | ASMTCMCOM ---
CM Note CM Note Notes: Pt has had several challenges with her dobhoff coming out, considering peg. PT/OT/FENCE SETTER continue to rec home health care. D/c plan remains home with [facility] PT/OT/FENCE SETTER. CM to follow. Date Signed: 10/28/2018 02:40 PM Electronically Signed By:JENY Grace
[2018-10-28] MEDS: ATENOLOL 25 MG TAB PO SCH (15:26)
[2018-10-28] MEDS: POLYETHYLENE GLYCOL 3350 17 GM PKT PO SCH ×2 (15:27→21:53)
[2018-10-28] MEDS: SENNOSIDES/DOCUSATE SODIUM TAB PO SCH ×2 (15:27→21:53)
[2018-10-28] MEDS: DULoxetine 60 MG CAP PO SCH (15:27)
[2018-10-28] MEDS: FAMOTIDINE 20 MG TAB PO SCH ×2 (15:27→20:46)
[2018-10-28] MEDS: GABAPENTIN 300 MG CAP PO SCH ×3 (15:27→23:18)
[2018-10-28] MEDS: HYDROmorphONE/DILAUDID 2 MG TAB PO PRN ×2 (18:21→23:19)
[2018-10-28] MEDS: DIAZEPAM 5 MG TAB PO PRN (20:53)
[2018-10-29] MEDS: HYDROmorphONE/DILAUDID 2 MG TAB PO PRN ×4 (03:40→23:23)
[2018-10-29] MEDS: GABAPENTIN 300 MG CAP PO SCH ×5 (06:22→21:03)
[2018-10-29] MEDS: DIAZEPAM 5 MG TAB PO PRN ×3 (06:25→21:03)
--- NOTE | 2018-10-29 07:28 | SOAPPROG ---
SOAP Progress Note Assessment/Plan: Assessment: 68 yo F POD #10 plate removal, C2/3, C3/4 ACDF with C2-5 plating, C2 -5 posterior fusion Plan: neuro: stable continued dysphagia, diet advance to puree yesterday, continue to follow for now hard collar at all times JPs removed PT/OT/ST scd/dino/lovenox for dvt prophylaxis please call with neuro changes dc merchandise planner to evaluate placement vs hhc discussed with Dr Monique 10/21/18 08:11 10/28/18 07:50 10/29/18 07:27 Subjective: continue neck pain, swallowing improving, no arm pain, no weakness. Objective: Vital Signs Temp Pulse Resp BP Pulse Ox 36.9 C 63 16 153/87 H 97 10/28/18 23:12 10/28/18 23:12 10/28/18 23:12 10/28/18 23:12 10/28/18 23:12 Laboratory Results 10/20/18 04:30 10/20/18 04:30 10/28/18 10/29/18 10/30/18 05:59 05:59 05:59 Intake Total 1500 750 Output Total 600 Balance 900 750 AAOX4, +FC PERRL, EOMI, no facial droop 5/5 + light touch C/D/I ICD10 Worksheet Patient Problems: Problems Problem Status Onset Fusion of spine of cervical region Acute
[2018-10-29] MEDS: ENOXAPARIN 40 MG/0.4 ML SYR SC SCH (09:54)
[2018-10-29] MEDS: ATENOLOL 25 MG TAB PO SCH (09:54)
[2018-10-29] MEDS: FAMOTIDINE 20 MG TAB PO SCH ×2 (09:55→21:03)
[2018-10-29] MEDS: DULoxetine 60 MG CAP PO SCH (09:58)
[2018-10-29] MEDS: POLYETHYLENE GLYCOL 3350 17 GM PKT PO SCH ×3 (10:45→21:45)
[2018-10-29] MEDS: SENNOSIDES/DOCUSATE SODIUM TAB PO SCH ×2 (10:45→21:44)
--- NOTE | 2018-10-29 10:47 | ASMTCMCOM ---
CM Note CM Note Notes: [facility]du from [facility] here to meet with patient. Current plan is for her to d/c to her daughter's home with home health. Address updated. Case Management will follow. Current CM discharge plan: to daughter's home w [facility] PT/OT/PUBLIC RELATIONS SUPERVISOR Date Signed: 10/29/2018 10:46 AM Electronically Signed By:Anna Shields RN
[2018-10-29] MEDS ORDERED: HYDROmorphONE/DILAUDID 1 MG/ML INJ IVP PRN (16:08)
[2018-10-30] MEDS: HYDROmorphONE/DILAUDID 2 MG TAB PO PRN ×4 (03:59→13:55)
--- NOTE | 2018-10-30 05:45 | NEUSURGPN ---
Assessment/Plan: Assessment: 68 yo F POD #11 plate removal, C2/3, C3/4 ACDF with C2-5 plating, C2 -5 posterior fusion Plan: neuro: stable continued dysphagia, diet advanced to puree, continue to follow for now hard collar at all times JPs removed PT/OT/ST scd/dino/lovenox for dvt prophylaxis please call with neuro changes dc marketing planner to evaluate placement vs hhc discussed with Dr Monique Subjective: Pain and swallowing improving Objective: NAD A&Ox3 MAEx4 5/5 and equal in BUE and BLE. Incisions c/d/i Catheter Insertion Date: 10/19/18 - Physician Discussed Patient with DrAna Paula: Car Neurosurgery Physical Exam - Vitals, I&O, Labs I and O 10/28/18 10/29/18 10/30/18 05:59 05:59 05:59 Intake Total 6630 536 8885 Output Total 600 Balance 308 785 5820 Intake: Oral (ml) 1400 IV Infused (ml) 1500 750 Ns 1,000 ml @ 125 mls/hr 1500 750 IV CONT GABRIELA Rx#: [id number] Output: Urine (ml) 600 Toilet 600 Other: Intake Quantity Yes Yes Sufficient Number of Voids Toilet 2 Number of Stools Toilet 1 Vital Signs Temp Pulse Resp BP Pulse Ox 36.9 C 67 16 129/66 H 90 L 10/29/18 23:03 10/29/18 23:03 10/29/18 23:03 10/29/18 23:03 10/29/18 23:03 Laboratory Results 10/20/18 04:30 10/20/18 04:30 ICD10 Worksheet Patient Problems: Problems Problem Status Onset Fusion of spine of cervical region Acute
[2018-10-30] MEDS: GABAPENTIN 300 MG CAP PO SCH ×3 (06:05→13:55)
[2018-10-30] MEDS: ATENOLOL 25 MG TAB PO SCH (08:55)
[2018-10-30] MEDS: ENOXAPARIN 40 MG/0.4 ML SYR SC SCH (08:55)
[2018-10-30] MEDS: DULoxetine 60 MG CAP PO SCH (08:57)
[2018-10-30] MEDS: FAMOTIDINE 20 MG TAB PO SCH (08:58)
[2018-10-30] MEDS: SENNOSIDES/DOCUSATE SODIUM TAB PO SCH (08:59)
[2018-10-30] MEDS: POLYETHYLENE GLYCOL 3350 17 GM PKT PO SCH (08:59)
[2018-10-30 09:00] VITALS: BP 116/78
[2018-10-30] MEDS: DIAZEPAM 5 MG TAB PO PRN ×2 (09:10→16:47)
--- NOTE | 2018-10-30 12:31 | PDIAF ---
- Diagnosis Code Status: Full Code - Medication Management Discharge Medications: electronically signed and located in the Home Medication List. - Orders Services needed: Physical Therapy, Occupational Therapy, Speech Language Pathologist Diet Recommendation: no restrictions on diet Diet Texture: Dysphagia 1 - Pureed, Thin Liquids, Meds Whole in Puree - Follow Up Care Current Providers and Referrals: Eric Marie MD [Primary Care Provider] -
--- NOTE | 2018-10-30 12:58 | ASMTLACE ---
[facility] Length of stay for Answers: 7-13 days current admission Acuity / Level of Answers: Yes Care: Did the patient have an inpatient admission? Comorbidities - select Answers: Opioid dependence all that apply / Chronic pain Other Notes: HTN # of Emergency department Answers: 0 visits in the last 6 months Social determinants Answers: Mental health diagnosis (anxiety, depression, pers onality disorders, etc.) Score: 16 Date Signed: 10/30/2018 12:57 PM Electronically Signed By:JENY Grace
--- NOTE | 2018-10-30 14:00 | ASMTCMCOM ---
CM Note CM Note Notes: Pt medically stable for d/c with [facility]. Orders sent in [employer]. Indu at [facility] notified. Date Signed: 10/30/2018 01:59 PM Electronically Signed By:JENY Grace
--- NOTE | 2018-11-04 11:07 | GDS ---
ADMISSION DIAGNOSES: Cervical fracture with cervical stenosis. DISCHARGE DIAGNOSES: 1. Status post plate removal, C3 to C5, C2-3, and redo C3-4 anterior cervical diskectomy and fusion with C2 to C5 plating and C2 to C5 posterior instrumentation and fusion. 2. Postoperative dysphagia. HISTORY/PHYSICAL: Please see admission history and physical. COURSE: Patient is a 68-year-old female who presented with worsening neck pain after her C3 to C5 an terior cervical diskectomy and fusion. She was found to have a C3 fracture with C2-3 stenosis. She was taken to the operating room on 10/19/2018, where she underwent plate removal, followed by C2-3 an d redo C3-4 anterior cervical diskectomy and fusion, with a C2 to C5 anterior plating. She also unde rwent a C2 to C5 posterior instrumentation and fusion. There were no intraoperative complications, b ut postoperatively, she did have some significant dysphagia. She had a Dobhoff placed, but this was subsequently coughed out and removed by the patient. She underwent replacement of the Dobhoff tube s everal times, and each time, it was subsequently inadvertently removed either by coughing or by the p atient's agitation. She was given a dose of IV steroids, and her dysphagia did improve. She advance d her diet with Speech Therapy. Her postop imaging showed good position of the hardware. She made s low progress with physical therapy and occupational therapy, as well as slow improvement with her dys phagia. She was discharged home with home health care on 10/30/2018. Patient was discharged with po stop cervical fusion instructions and recommended she return for a neurosurgical followup appointment in 10-14 days. /[id number]/MODL
== END 2018-10-30 16:52 | disposition home health service (06) | DRG 455 ==
LOC: F3N 13:12 → F2N 10-20 00:50 → F3N 10-21 16:39
PROVIDERS: ADMIT Neurological Surgery; ATTEND Neurological Surgery
PROC: 4A1004G Monitoring of Central Nervous Electrical Activity, Intraoperative, Open Approach (ICD-10-PCS; principal; 2018-10-19 15:30)
PROC: 0RP10AZ Removal of Interbody Fusion Device from Cervical Vertebral Joint, Open Approach (ICD-10-PCS; principal; 2018-10-19 15:30)
PROC: 0RG20A0 Fusion of 2 or more Cervical Vertebral Joints with Interbody Fusion Device, Anterior Approach, Anterior Column, Open Approach (ICD-10-PCS; principal; 2018-10-19 15:30)
PROC: 0RT30ZZ Resection of Cervical Vertebral Disc, Open Approach (ICD-10-PCS; principal; 2018-10-19 15:30)
PROC: 8E0WXBZ Computer Assisted Procedure of Trunk Region (ICD-10-PCS; principal; 2018-10-19 15:30)
PROC: 0RG2071 Fusion of 2 or more Cervical Vertebral Joints with Autologous Tissue Substitute, Posterior Approach, Posterior Column, Open Approach (ICD-10-PCS; principal; 2018-10-19 15:30)
PROC: 0DH67UZ Insertion of Feeding Device into Stomach, Via Natural or Artificial Opening (ICD-10-PCS; 2018-10-24)
PROC: 0DH67UZ Insertion of Feeding Device into Stomach, Via Natural or Artificial Opening (ICD-10-PCS; 2018-10-27)
DX: M96.0 Pseudarthrosis after fusion or arthrodesis (principal); R13.10 Dysphagia, unspecified; M84.88 Other disorders of continuity of bone, other site; M06.9 Rheumatoid arthritis, unspecified; I10 Essential (primary) hypertension; E66.9 Obesity, unspecified; G89.29 Other chronic pain; G47.33 Obstructive sleep apnea (adult) (pediatric); Z23 Encounter for immunization
CPT/HCPCS: 92526-GN; 92610-GN; 97116-GP; 97161-GP; 97165-GO; 97530-GO; 97530-GP; 97535-GO; C1713; C1762; G0009; G8978-GP-CI; G8979-GP-CI; G8980-GP-CI; G8987-GO-CJ; G8988-GO-CI; G8989-GO-CI; G8996-GN-CJ; G8997-GN-CH; J0690; J1100; J1170; J1650; J2001; J2060; J2250; J2270; J2405; J2704; J3010; J3360; J7613; P9041; Q9967